=== PATIENT | female | born 1960 | race Two or more races ===

== ENCOUNTER 2020-05-25 16:24 | Emergency (ER) | payer MEDICAID ==
[~2020-05-25] VITALS: Ht 175.3 cm; Wt 59.0 kg
[2020-05-25 16:32] VITALS: BP_DIAS 115
--- NOTE | 2020-05-25 18:34 | NUR ---
Patient to xray, ambulated self
[2020-05-25 19:09] VITALS: BP_SYST 160
== END 2020-05-25 19:13 | disposition home or self-care (01) ==
LOC: ER 16:28
DX: R07.0 Pain in throat (principal)
CPT/HCPCS: 70360; 71045; 99284